=== PATIENT | female | born 1995 | race Native Hawaiian/Other Pacific Islander ===

== ENCOUNTER 2017-01-11 17:00 | Inpatient (IN) | payer OTHER ==
[~2017-01-11] VITALS: Ht 160 cm; Wt 87.5 kg
[2017-01-11 17:32] VITALS: BP 125/70
[2017-01-11] MEDS ORDERED: LACTATED RINGERS 1,000 ML IV SCH (19:34)
[2017-01-11] MEDS ORDERED: CARBOPROST 250 MCG/ML AMP IM PRN (19:35)
[2017-01-11] MEDS ORDERED: METHYLERGONOVINE 0.2 MG/ML AMP IM PRN ×2 (19:35→23:15)
[2017-01-11] MEDS ORDERED: CITRIC ACID/SODIUM CITRATE 30 ML UDC PO ONE (21:30)
[2017-01-11] MEDS ORDERED: ceFAZolin 1,000 MG VIAL ONE (21:32)
[2017-01-11] MEDS ORDERED: CITRIC ACID/SODIUM CITRATE 30 ML UDC ONE (21:33)
[2017-01-11] MEDS ORDERED: TRIAMCINOLONE 40 MG/ML 5ML VIAL ONE (22:46)
[2017-01-11] MEDS ORDERED: OXYTOCIN 10 UNITS/ML VIAL ONE (22:46)
[2017-01-11] MEDS ORDERED: OXYTOCIN 10 UNITS/ML VIAL IV ONE (23:02)
[2017-01-11] MEDS ORDERED: METOCLOPRAMIDE 10 MG/2 ML INJ VIAL IVP ONE (23:02)
[2017-01-11] MEDS ORDERED: ONDANSETRON 4 MG/2 ML VIAL IVP ONE (23:02)
[2017-01-11] MEDS ORDERED: KETOROLAC 30 MG/ML VIAL IVP ONE (23:02)
[2017-01-11] MEDS ORDERED: BUPIVACAINE-MPF 0.75% 10 ML VIAL INJ ONE (23:02)
[2017-01-11] MEDS ORDERED: MORPHINE PRES FREE 10 MG/10 ML AMP IV ONE (23:08)
[2017-01-11] MEDS ORDERED: IBUPROFEN 800 MG TAB PO PRN (23:15)
[2017-01-11] MEDS ORDERED: TEMAZEPAM 15 MG CAP PO PRN (23:15)
[2017-01-11] MEDS ORDERED: MEASLES, MUMPS, AND RUBELLA 1 VIAL SQVAC PRN (23:15)
[2017-01-11] MEDS ORDERED: OXYTOCIN 20 UNITS/LR PREMIX 1,000 ML IV SCH (23:15)
[2017-01-11] MEDS ORDERED: SIMETHICONE 80 MG TAB.CHEW PO PRN (23:15)
[2017-01-11] MEDS ORDERED: TRIMETHOBENZAMIDE 200 MG/2 ML SYR IM PRN (23:15)
[2017-01-11] MEDS ORDERED: oxyCODONE/APAP 5/325 MG 1 TAB TAB PO PRN (23:15)
[2017-01-11] MEDS ORDERED: diphenhydrAMINE 50 MG/ML VIAL IVP PRN (23:30)
[2017-01-11] MEDS ORDERED: ONDANSETRON 4 MG/2 ML VIAL IVP PRN (23:30)
[2017-01-11] MEDS ORDERED: NALOXONE 0.4 MG/ML VIAL IVP PRN ×2 (23:30)
[2017-01-11] MEDS ORDERED: OXYTOCIN 20 UNITS/LR PREMIX 1,000 ML IV ONE (23:55)
[2017-01-12] MEDS ORDERED: MEPERIDINE 25 MG/ML SYR IVP PRN (01:00)
[2017-01-12] MEDS ORDERED: MEPERIDINE 25 MG/ML SYR ONE (01:07)
[2017-01-12] MEDS ORDERED: KETOROLAC 15 MG/ML VIAL IVP PRN (09:45)
[2017-01-12] MEDS ORDERED: ACETAMINOPHEN 325 MG TAB PO PRN (09:45)
[2017-01-12] MEDS ORDERED: KETOROLAC 15 MG/ML VIAL ONE (09:56)
[2017-01-12] MEDS: OXYTOCIN 20 UNITS/LR PREMIX 1,000 ML IV SCH ×2 (09:59→18:01)
--- NOTE | 2017-01-12 13:35 | NUR ---
AWAKE AND ALERT S/P TOLERATED INCENTIVE SPIROMETRY (IS) WELL WITHOUT INCIDENT C/O ABDOMINAL SLIGHT PAIN DURING INSPIRATION ENCOURAGED PATIENT WITH ACKNOWLEDGEMENT TO USE IS EVERY 2 HOURS WHILE AWAKE
[2017-01-12] MEDS: DOCUSATE SOD/SENNA 50/8.6 MG 1 TAB PO SCH (20:53)
[2017-01-12] MEDS ORDERED: HYDROCORTISONE 2.5% OINT 30 GM TUBE TP SCH (21:00)
[2017-01-12] MEDS: HYDROcodone/APAP 5/325 MG 1 TAB TAB PO PRN (23:37)
[2017-01-12] MEDS ORDERED: INFLUENZA VIRUS VACCINE QUAD 0.5 ML SYR IMVAC PRN (23:45)
[2017-01-13] MEDS: HYDROcodone/APAP 5/325 MG 1 TAB TAB PO PRN ×3 (04:05→19:54)
[2017-01-13] MEDS: DOCUSATE SOD/SENNA 50/8.6 MG 1 TAB PO SCH (19:54)
[2017-01-14] MEDS: HYDROcodone/APAP 5/325 MG 1 TAB TAB PO PRN (02:03)
[2017-01-14] MEDS ORDERED: SODIUM PHOSPHATE 118 ML ENEM RC PRN (07:10)
[2017-01-14] MEDS ORDERED: MOTRIN600 MG PO ×2 (13:48→13:53)
[2017-01-14] MEDS ORDERED: DULCOLAX10 M2 RC (13:50)
== END 2017-01-14 15:30 | disposition home or self-care (01) | DRG 540 ==
LOC: MLD 17:00 → OBSVTOIN 17:00 → MFCC 01-12 00:45
PROVIDERS: ADMIT Obstetrics & Gynecology; ATTEND Obstetrics & Gynecology
PROC: 10D00Z1 Extraction of Products of Conception, Low, Open Approach (ICD-10-PCS; principal; 2017-01-11 23:00)
DX: O32.1XX0 Maternal care for breech presentation, not applicable or unspecified (principal); O99.824 Streptococcus B carrier state complicating childbirth; Z37.0 Single live birth; Z3A.39 39 weeks gestation of pregnancy